=== PATIENT | female | born 1945 | race Caucasian/White ===

== ENCOUNTER 2019-04-12 10:22 | Outpatient (CLI) | payer MEDICARE | END 2019-04-12 23:59 | disposition home or self-care (01) | LOC: CFH 10:22 → EDBD 11:00 → CFH 23:59 | PROVIDERS: ATTEND Physician Assistant | DX: Z12.31 Encounter for screening mammogram for malignant neoplasm of breast (principal); M81.0 Age-related osteoporosis without current pathological fracture; M85.88 Other specified disorders of bone density and structure, other site | CPT/HCPCS: 77080; 77067 ==